=== PATIENT | male | born 1980 | race Two or more races ===

== ENCOUNTER 2020-12-30 01:35 | Emergency (ER) | payer OTHER ==
[~2020-12-30] VITALS: Ht 170.2 cm; Wt 83.0 kg
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
[2020-12-30] MEDS ORDERED: TDAP [DIPH/PERTUSSIS/TET] 0.5 ML VIAL IM ONE ×2 (01:54→02:00)
[2020-12-30] MEDS ORDERED: HALOPERIDOL LACTATE INJ 5 MG/ML VIAL ONE (02:03)
--- NOTE | 2020-12-30 02:03 | NUR ---
NOTED INCREASED AGITATION. VERBALLY AND PHYSICALLY AGGRESSIVE TOWARDS STAFF. SECURITY AND MD AT BEDSIDE
[2020-12-30] MEDS ORDERED: HALOPERIDOL LACTATE INJ 5 MG/ML VIAL IM ONE (02:30)
[2020-12-30] MEDS ORDERED: diphenhydrAMINE HCL 50 MG/ML VIAL ONE ×2 (02:43→05:44)
[2020-12-30] MEDS ORDERED: LORAZEPAM INJ 2 MG/ML VIAL ONE ×2 (02:43→04:50)
[2020-12-30] MEDS ORDERED: LORAZEPAM INJ 2 MG/ML VIAL IV ONE (03:30)
[2020-12-30] MEDS ORDERED: diphenhydrAMINE HCL 50 MG/ML VIAL IV ONE (03:30)
--- NOTE | 2020-12-30 04:30 | NUR ---
PT BROUGHT BY RADIOLOGY TO CT
--- NOTE | 2020-12-30 04:43 | NUR ---
REC'D CALL FROM RADIOLOGY. PT MOVING AROUND TOO MUCH, UNSUCCESSFUL CT. AWARE
[2020-12-30] MEDS ORDERED: LORAZEPAM INJ 2 MG/ML VIAL IM ONE (05:00)
--- NOTE | 2020-12-30 05:25 | NUR ---
PT BROUGHT BY RADIOLOGY TO CT
--- NOTE | 2020-12-30 05:42 | NUR ---
PER RADIOLOGY DEPT, PT STILL MOVING TOO MUCH FOR CT. UNSUCCESSFUL, AWARE.
[2020-12-30] MEDS ORDERED: diphenhydrAMINE HCL 50 MG/ML VIAL IM ONE (06:00)
--- NOTE | 2020-12-30 07:25 | NUR ---
pt sleeping, easily arousable. vitals stable and updated. will continue to monitor.
--- NOTE | 2020-12-30 12:04 | NUR ---
pt awake, verbally responsive. aaox4. requesting to be discharge. dr bonilla re evaluated and medically clear for discharge. d/c home in stable condition.
[2020-12-30 12:09] VITALS: BP 125/75
== END 2020-12-30 12:10 | disposition home or self-care (01) ==
LOC: ER 01:38
DX: S00.83XA Contusion of other part of head, initial encounter (principal); F10.129 Alcohol abuse with intoxication, unspecified; Y04.0XXA Assault by unarmed brawl or fight, initial encounter; Y93.89 Activity, other specified; Y92.89 Other specified places as the place of occurrence of the external cause; Y99.8 Other external cause status; Y90.9 Presence of alcohol in blood, level not specified
CPT/HCPCS: 70450; 70486; 90471; 90715; 96372 ×2; 96374; 96375; 99285; A6403; J1200 ×2; J1630; J2060 ×2

== ENCOUNTER 2022-01-25 03:57 | Emergency (ER) | payer OTHER ==
[~2022-01-25] VITALS: Ht 177.8 cm; Wt 90.7 kg
[2022-01-25 04:14] VITALS: BP 144/95
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
--- NOTE | 2022-01-25 04:19 | NUR ---
PATIENT REFUSING C-COLLAR MD NOTIFIED, EDUCATED PT ON WHY IT IS IMPORTANT TO HAVE ON. PT STILL REFUSING.
[2022-01-25] MEDS ORDERED: TDAP [DIPH/PERTUSSIS/TET] 0.5 ML VIAL IM ONE (04:30)
[2022-01-25] MEDS ORDERED: LIDOCAINE 1%-EPI 1:100,000 20 ML VIAL ONE (04:53)
--- NOTE | 2022-01-25 04:57 | NUR ---
WOUND CARE DONE TO PT'S POSTERIOR HEAD.
--- NOTE | 2022-01-25 05:02 | NUR ---
DR. FELTON AT PT'S BEDSIDE; VERBAL ORDER FOR LIDOCAINE WITH EPI & ADMINISTERED BY DR. FELTON POSTERIOR HEAD
== END 2022-01-25 05:56 | disposition home or self-care (01) ==
LOC: ER 04:00
DX: S22.32XA Fracture of one rib, left side, initial encounter for closed fracture (principal); S01.01XA Laceration without foreign body of scalp, initial encounter; F10.229 Alcohol dependence with intoxication, unspecified; W18.30XA Fall on same level, unspecified, initial encounter; Y93.89 Activity, other specified; Y92.89 Other specified places as the place of occurrence of the external cause; Y99.8 Other external cause status; Y90.9 Presence of alcohol in blood, level not specified
CPT/HCPCS: 12002; 70450; 72125; 90471; 90715; 99284; A6403; J3490

== ENCOUNTER 2022-02-06 11:30 | Emergency (ER) | payer OTHER ==
[~2022-02-06] VITALS: Ht 177.8 cm; Wt 86.2 kg
[2022-02-06 11:33] VITALS: BP 122/71
--- NOTE | 2022-02-06 11:35 | NUR ---
STAPLE REMOVED BY .
--- NOTE | 2022-02-06 11:42 | NUR ---
Patient discharged to home in stable condition. Written and verbal after care instructions given. Patient verbalizes understanding of instruction.
--- NOTE | 2022-02-06 11:42 | NUR ---
WOUND CLEANING AND DRESSING DONE.
== END 2022-02-06 11:42 | disposition home or self-care (01) ==
LOC: ER 11:33
DX: S01.01XD Laceration without foreign body of scalp, subsequent encounter (principal); V87.8XXD Person injured in other specified noncollision transport accidents involving motor vehicle (traffic), subsequent encounter